=== PATIENT | male | born 1960 | race Caucasian/White ===

== ENCOUNTER 2018-03-27 06:51 | Inpatient (IN) | payer BC ==
[2018-03-21 16:42] VITALS: BMI 29.3
[2018-03-27] MEDS ORDERED: BUPIVACAINE HCL/PF 2.5 MG/ML - 30 ML VIAL IJ ONE (07:16)
[2018-03-27] MEDS ORDERED: MIDAZOLAM HCL 2 MG/2 ML SINGLE DOSE VIAL ONE (07:18)
[2018-03-27] MEDS ORDERED: PROPOFOL 20 ML ONE ×2 (07:18)
[2018-03-27] MEDS ORDERED: SUCCINYLCHOLINE CHLORIDE 200 MG/10 ML VIAL ONE (07:18)
[2018-03-27] MEDS ORDERED: HEPARIN NA (PORCINE) 5,000 UNITS/ML 1ML VIAL ONE (07:51)
--- NOTE | 2018-03-27 08:03 | HP ---
History & Physical Update - History History: No Change - Physical Physical: No Change - Assessment Assessment: No Change - Plan Plan: No Change (no changes snice visit on 03/13/18)
[2018-03-27] MEDS ORDERED: ROCURONIUM BROMIDE 50 MG/5 ML VIAL ONE (08:09)
[2018-03-27] MEDS ORDERED: ePHEDrine SULFATE 50 MG/1 ML AMPULE ONE (08:26)
[2018-03-27] MEDS ORDERED: BENZOIN/ALOE VERA/STORAX/TOLU 58 ML BOTTLE ONE (08:38)
[2018-03-27] MEDS ORDERED: ceFAZolin SODIUM 1 GM VIAL ONE (08:55)
[2018-03-27] MEDS ORDERED: GLYCOPYRROLATE 0.2 MG/1 ML VIAL ONE (08:55)
[2018-03-27] MEDS ORDERED: LIDOCAINE HCL 2% JELLY (5 ML/TUBE) ONE (08:55)
[2018-03-27] MEDS ORDERED: LIDOCAINE HCL/PF 2% SDV 5ML VIAL ONE (08:55)
[2018-03-27] MEDS ORDERED: DEXAMETHASONE SOD PHOSPHATE 4 MG/1 ML VIAL ONE (08:55)
[2018-03-27] MEDS ORDERED: NEOSTIGMINE METHYLSULFATE 0.5 MG/ML - 10 ML MDV ONE (08:56)
[2018-03-27] MEDS ORDERED: oxyCODONE HCL 5 MG TABLET PO PRN ×2 (09:32)
[2018-03-27] MEDS ORDERED: ONDANSETRON 4 MG/2 ML VIAL IVPUSH PRN (09:32)
[2018-03-27] MEDS ORDERED: PROMETHAZINE HCL 25 MG/1 ML VIAL IVPUSH PRN (09:32)
--- NOTE | 2018-03-27 11:32 | OP ---
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 OPERATION PERFORMED: Insertion of bone marrow aspirate concentrate stem cells into nonunion sites under image guidance. ANESTHESIA: General. ANTIBIOTICS GIVEN: 2 g of Keflex. 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 Treatment was in the form of neoadjuvant chemotherapy, radiation therapy, and surgery. In terms of surgical resection, margins were clear, and patient survived. 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 This was treated with a rodding of the femur, which unfortunately has gone on to a nonunion. The kevin remains intact. Some of the locking screws have broken. DESCRIPTION OF PROCEDURE: The patient was positioned in the left decubitus position right side up. Time-out was called. Imaging was done for intraoperative evaluation. C-arm was utilized. In the lateral decubitus ulcer right side up, the entire right lower extremity was prepped including hemipelvic region with Betadine scrub solution, wiped with alcohol, and DuraPrep applied. A Jamshidi needle was placed into the posterior ileum, and 160 mL of marrow was harvested. This was spun for the CD34 cells, and the entire bone marrow aspirate concentrate then under x-ray guidance using an 18-gauge needle. The needle was noted to be seated directly into the nonunion site. This was injected with the stem cells from 2 points, one lateral and one anteromedial. No complications. A Monocryl suture was placed into the harvest site to the back of the ileum. A light dressing applied. Plan for nonweightbearing for about 6 weeks. Concentration to a spica-type brace will be considered depending on the patient's ability to control his limb in ambulation that is keeping it nonweightbearing. The spica will be aimed at a hip spica with 30 degrees of flexion of the hip and 60 degrees of flexion at the knee to prevent any weightbearing at that point. I elected not to use a spica at this stage because of the expense of the spica and also the mere fact that the fracture itself is completely stable as seen on x-ray testing and the image. There is no gross movement meaning that the current rodding is holding this firmly, and this also is really noted by the fact that he is able to walk on his limb albeit with discomfort. If this is unable to control a spica harness, a brace will be applied. MD STANLEY Gleason/[id number]
[2018-03-27 13:19] VITALS: BP 128/73; PULSE 53; TEMP 97.8
== END 2018-03-27 11:08 | disposition home or self-care (01) | DRG 544 ==
LOC: FM/S 06:51
PROVIDERS: ADMIT Orthopaedic Surgery Orthopaedic Surgery of the Spine; ATTEND Orthopaedic Surgery Orthopaedic Surgery of the Spine
PROC: 3E0V3GC Introduction of Other Therapeutic Substance into Bones, Percutaneous Approach (ICD-10-PCS; 2018-03-27)
PROC: 07DR3ZZ Extraction of Iliac Bone Marrow, Percutaneous Approach (ICD-10-PCS; principal; 2018-03-27 08:31)
DX: M84.451A Pathological fracture, right femur, initial encounter for fracture (principal)
CPT/HCPCS: 73552-TC-RT-FY; 94760; J1644

== ENCOUNTER 2018-09-06 09:03 | Day surgery (SDC) | payer BC ==
[2018-08-30 13:04] VITALS: BMI 30.6
[2018-09-06] MEDS ORDERED: MIDAZOLAM HCL 2 MG/2 ML SINGLE DOSE VIAL ONE (11:38)
[2018-09-06] MEDS ORDERED: DESFLURANE GAS 240 ML BOTTLE IH ONE (11:40)
[2018-09-06] MEDS ORDERED: ROCURONIUM BROMIDE 50 MG/5 ML VIAL ONE (11:54)
[2018-09-06] MEDS ORDERED: PROPOFOL 20 ML ONE ×2 (11:54)
[2018-09-06] MEDS ORDERED: DEXAMETHASONE SOD PHOSPHATE 4 MG/1 ML VIAL ONE (11:55)
[2018-09-06] MEDS ORDERED: LIDOCAINE HCL/PF 2% SDV 5ML VIAL ONE (11:55)
[2018-09-06] MEDS ORDERED: ONDANSETRON 4 MG/2 ML VIAL ONE (11:55)
[2018-09-06] MEDS ORDERED: ceFAZolin SODIUM 1 GM VIAL ONE (11:55)
[2018-09-06] MEDS ORDERED: ceFAZolin SODIUM 1 GM VIAL IVPB ONE (11:56)
[2018-09-06] MEDS ORDERED: HEPARIN NA (PORCINE) 5,000 UNITS/ML 1ML VIAL ONE (12:03)
[2018-09-06] MEDS ORDERED: ePHEDrine SULFATE 50 MG/1 ML AMPULE ONE (12:18)
[2018-09-06] MEDS ORDERED: oxyCODONE HCL 5 MG TABLET PO PRN (12:38)
[2018-09-06] MEDS ORDERED: ONDANSETRON 4 MG/2 ML VIAL IVPUSH PRN (12:38)
[2018-09-06] MEDS ORDERED: LACTATED RINGERS SOLUTION 1,000 ML IV SCH (12:45)
[2018-09-06] MEDS ORDERED: NEOSTIGMINE METHYLSULFATE 0.5 MG/ML - 10 ML MDV ONE (12:46)
[2018-09-06] MEDS ORDERED: GLYCOPYRROLATE 0.2 MG/1 ML VIAL ONE (12:47)
--- NOTE | 2018-09-06 12:56 | OP ---
Operative Note - Note: Operative Date: 09/06/18 Pre-Operative Diagnosis: Right femur pathologic fracture non-union Operation: 1. Right posterior pelvis percutaneous bone marrow aspiration. 2. Right pathologic femur fracture non-union percutaneous bone marrow aspiration concentrate injection (10cc) Post-Operative Diagnosis: Same as Pre-op Surgeon: Santy Richardson Headhunter: Mac Richardson Anesthesiologist/ROTARY SWAGING MACHINE OPERATOR: Prince Ramirez Anesthesia: General Estimated Blood Loss (mls): 0 Fluid Volume Replaced (mls): 500 Operative Report Dictated: Yes
[2018-09-06 13:34] VITALS: TEMP 97.6
[2018-09-06 14:32] VITALS: BP 117/74; PULSE 75
[2018-09-06] MEDS ORDERED: ESCITALOPRAM OXALATE 10 MG TABLET (FP) PO SCH (22:00)
--- NOTE | 2018-11-08 12:39 | OP ---
DATE OF OPERATION: 09/06/2018 PREOPERATIVE DIAGNOSIS: Pathological fracture, right femur, with nonunion. POSTOPERATIVE DIAGNOSIS: Pathological fracture, right femur, with nonunion. OPERATION: 1. Right posterior pelvis percutaneous bone marrow aspiration. 2. Right pathological fracture, nonunion, percutaneous bone marrow aspirate instillation. SURGEON: Santy Richardson MD CANDY DECORATOR: Mac Richardson MD ANESTHESIA: General. PROCEDURE: Patient correctly identified, brought to the operating room, under general anesthesia was placed in the lateral decubitus position right side up. To start a Jamshidi needle was placed into right posterior ileum. Sixty mL of marrow were aspirated from the right posterior ileum. This with the Stem Cell team. The material was spun down for the appropriate CD 34 cells, appropriately collected in a syringe. Under x-ray control, image intensification, an 18-gauge needle was inserted after sterilization of the skin with Betadine scrub and alcohol. The instillation of the injection, an 18-gauge needle inserted into the pathological fracture site and this was attacked from 3 different instillation sites, and the marrow aspirate concentrate was then instilled into the nonunion site under direct x-ray control. The needle was withdrawn. No complications. Patient was extricated out of the OR and will be followed in the office. MD STANLEY Gleason/[id number]
== END 2018-09-06 14:44 | disposition home or self-care (01) ==
LOC: MERGE 09:03 → FASU 09:03
PROVIDERS: ATTEND Orthopaedic Surgery Orthopaedic Surgery of the Spine
PROC: [UNRECOGNIZED PROCEDURE] (principal; 2018-09-06 11:00)
DX: M84.451K Pathological fracture, right femur, subsequent encounter for fracture with nonunion (principal)
CPT/HCPCS: 73552-TC-RT-FY; 94760; J1644